=== PATIENT | male | born 1995 | race Caucasian/White ===

== ENCOUNTER 2017-06-04 18:01 | Emergency (ER) | payer BC ==
--- NOTE | 2017-06-04 18:23 | EDM.PDOC ---
ED HPI GENERAL MEDICAL PROBLEM - General Chief Complaint: Skin Complaint Stated Complaint: LEFT SIDE PINKIE INFECTION Time Seen by Provider: 06/04/17 18:17 Source of Information: Reports: Patient - History of Present Illness INITIAL COMMENTS - FREE TEXT/NARRATIVE: HISTORY AND PHYSICAL: [] 21-year-old male presents with a injury to his left fifth finger History of Present Illness: [] Smashed right fifth finger 3 weeks ago. Now has redness and swelling to this area Review of Systems: As per history of present illness and below otherwise all systems reviewed and negative. Past medical history: As per history of present illness and as reviewed below otherwise noncontributory. Surgical history: As per history of present illness and as reviewed below otherwise noncontributory. Social history: No reported history of drug or alcohol abuse. Family history: As per history of present illness and as reviewed below otherwise noncontributory. Physical exam: Alert and oriented gentleman speaking in full sentences denies significant pain with this injury HEENT: Atraumatic, normocehpalic, pupils reactive, negative for conjunctival pallor or scleral icterus, mucous membranes moist, throat clear, neck supple, nontender, trachea midline. Lungs: Clear to auscultation, breath sounds equal bilaterally, chest non tender. Heart: S1S2, regular, negative for clicks, rubs, or JVD. Abdomen: Soft, nondistended, nontender. Negative for masses or hepatossplenmegaly. Negative for costovertebral tenderness. Pelvis: Stable nontender. Genitourinary: Deferred. Rectal: Deferred Extremities: Erythema to the tip of his left fifth finger, negative for cords or calf pain. Neurovascular unremarkable. Neuro: Awake, alert, oriented. Cranial nerves II through XII unremarkable. Cerebellum unremarkable. Motor and sensory unremarkable throughout. Exam nonfocal. Diagnostics: [] Therapeutics: [] Impression: [Perionychia left first finger] Plan: []Home Augmentin Epson salt water soaks Definitive disposition and diagnosis as appropriate pending reevaluation and review of above. Onset: Sudden Duration: Week(s): (3 weeks ago) Location: Reports: Upper Extremity, Left Left 5-Little finger Pain Score (Numeric/FACES): 5 - Related Data Allergies Allergy/AdvReac Type Severity Reaction Status Date / Time No Known Allergies Allergy Verified 08/09/17 18:12 Home Meds: Home Meds Amoxicillin/Potassium Clav [Augmentin 875-125 Tablet] 1 each PO Q12HR #20 tablet 06/04/17 [Rx] ED ROS GENERAL - Review of Systems Review Of Systems: ROS reveals no pertinent complaints other than HPI. ED EXAM, SKIN/RASH Exam: See Below (See dictation) Course - Vital Signs Last Recorded V/S: Last Vital Signs Temp 36.5 C 06/04/17 18:12 Pulse 74 06/04/17 18:12 Resp 18 06/04/17 18:12 BP 141/74 H 06/04/17 18:12 Pulse Ox 98 06/04/17 18:12 Departure - Departure Time of Disposition: 18:23 Disposition: Home, Self-Care 01 Condition: Good Clinical Impression: Perionychia of finger Qualifiers: Laterality: left Qualified Code(s): L03.012 - Cellulitis of left finger - Discharge Information Prescriptions: Amoxicillin/Potassium Clav [Augmentin 875-125 Tablet] 1 each PO Q12HR #20 tablet Forms: ED Department Discharge Additional Instructions: The following information is given to patients seen in the emergency department who are being discharged to home. This information is to outline your options for follow-up care. We provide all patients seen in our emergency department with a follow-up referral. The need for follow-up, as well as the timing and circumstances, are variable depending upon the specifics of your emergency department visit. If you don't have a primary care physician on staff, we will provide you with a referral. We always advise you to contact your personal physician following an emergency department visit to inform them of the circumstance of the visit and for follow-up with them and/or the need for any referrals to a consulting specialist. The emergency department will also refer you to a specialist when appropriate. This referral assures that you have the opportunity for followup care with a specialist. All of these measure are taken in an effort to provide you with optimal care, which includes your followup. Under all circumstances we always encourage you to contact your private physician who remains a resource for coordinating your care. When calling for followup care, please make the office aware that this follow-up is from your recent emergency room visit. If for any reason you are refused follow-up, please contact the [facility] emergency department at and asked to speak to the emergency department charge nurse. Epson salt water soaks 3 times a day Augmentin tablets twice daily 10 days Follow-up with your primary care provider
[2017-06-04 18:28] VITALS: BP 141/74
== END 2017-06-04 18:38 | disposition home or self-care (01) ==
LOC: MW.ED 18:01
DX: L03.012 Cellulitis of left finger (principal)
CPT/HCPCS: 99282; 99284

== ENCOUNTER 2017-07-23 00:43 | Emergency (ER) | payer BC ==
[2017-07-23] MEDS ORDERED: Lidocaine 1% 20 ML MDV ONE (01:02)
[2017-07-23] MEDS ORDERED: Bacitracin Oint 1 GM U/D Packet ONE (01:06)
[2017-07-23 07:23] VITALS: BP 129/68
== END 2017-07-23 07:21 | disposition home or self-care (01) ==
LOC: MW.ED 00:43
DX: S01.412A Laceration without foreign body of left cheek and temporomandibular area, initial encounter (principal); W19.XXXA Unspecified fall, initial encounter; Y93.72 Activity, wrestling; Y92.009 Unspecified place in unspecified non-institutional (private) residence as the place of occurrence of the external cause
CPT/HCPCS: 12013; 99282; 99283

== ENCOUNTER 2019-01-15 22:40 | Emergency (ER) | payer BC ==
--- NOTE | 2019-01-15 22:47 | EDM.PDOC ---
ED HPI GENERAL MEDICAL PROBLEM - General Stated Complaint: SORE THROAT Time Seen by Provider: 01/15/19 22:46 Source of Information: Reports: Patient - History of Present Illness INITIAL COMMENTS - FREE TEXT/NARRATIVE: HISTORY AND PHYSICAL: History of present illness: [A shunt sore throat for 2 days increasing in severity some difficulty with solid food no difficulty with liquid no drooling trismus or muffled voice ] Review of systems: As per history of present illness and below otherwise all systems reviewed and negative. Past medical history: As per history of present illness and as reviewed below otherwise noncontributory. Surgical history: As per history of present illness and as reviewed below otherwise noncontributory. Social history: No reported history of drug or alcohol abuse. Family history: As per history of present illness and as reviewed below otherwise noncontributory. Physical exam: HEENT: Atraumatic, normocephalic, pupils reactive, negative for conjunctival pallor or scleral icterus, mucous membranes moist, throat clear, neck supple, nontender, trachea midline. D erythema no exudates Lungs: Clear to auscultation, breath sounds equal bilaterally, chest nontender. Heart: S1S2, regular, negative for clicks, rubs, or JVD. Abdomen: Soft, nondistended, nontender. Negative for masses or hepatosplenomegaly. Negative for costovertebral tenderness. Pelvis: Stable nontender. Genitourinary: Deferred. Rectal: Deferred. Extremities: Atraumatic, negative for cords or calf pain. Neurovascular unremarkable. Neuro: Awake, alert, oriented. Cranial nerves II through XII unremarkable. Cerebellum unremarkable. Motor and sensory unremarkable throughout. Exam nonfocal. Diagnostics: [/Influenza ] Therapeutics: [Augmentin 875 per 125 #20 no refill ] Impression: [ pharyngitis ] Definitive disposition and diagnosis as appropriate pending reevaluation and review of above. throat Pain Score (Numeric/FACES): 8 - Related Data Allergies Allergy/AdvReac Type Severity Reaction Status Date / Time No Known Allergies Allergy Verified 01/15/19 22:49 Home Meds: Home Meds . [No Known Home Meds] 07/23/17 [History] Past Medical History Musculoskeletal History: Reports: Fracture Social & Family History - Caffeine Use Caffeine Use: Reports: Coffee, Energy Drinks, Soda ED ROS GENERAL - Review of Systems Review Of Systems: See Below ED EXAM, GENERAL - Physical Exam Exam: See Below Course - Vital Signs Last Recorded V/S: Last Vital Signs Temp 96.4 F 01/15/19 22:46 Pulse 68 01/15/19 22:46 Resp 17 01/15/19 22:46 BP 126/72 01/15/19 22:46 Pulse Ox 97 01/15/19 22:46 - Orders/Labs/Meds Orders: Active Orders 24 hr Category Date Time Status CULTURE STREP A CONFIRMATION [RM] Stat Lab 01/15/19 22:52 Results STREP SCRN A RAPID W CULT CONF [RM] Stat Lab 01/15/19 22:52 Results Departure - Departure Time of Disposition: 23:24 Disposition: Home, Self-Care 01 Condition: Good Clinical Impression: Pharyngitis - Discharge Information Additional Instructions: The following information is given to patients seen in the emergency department who are being discharged to home. This information is to outline your options for follow-up care. We provide all patients seen in our emergency department with a follow-up referral. The need for follow-up, as well as the timing and circumstances, are variable depending upon the specifics of your emergency department visit. If you don't have a primary care physician on staff, we will provide you with a referral. We always advise you to contact your personal physician following an emergency department visit to inform them of the circumstance of the visit and for follow-up with them and/or the need for any referrals to a consulting specialist. The emergency department will also refer you to a specialist when appropriate. This referral assures that you have the opportunity for follow-up care with a specialist. All of these measure are taken in an effort to provide you with optimal care, which includes your follow-up. Under all circumstances we always encourage you to contact your private physician who remains a resource for coordinating your care. When calling for follow-up care, please make the office aware that this follow-up is from your recent emergency room visit. If for any reason you are refused follow-up, please contact the [facility] emergency department at and asked to speak to the emergency department charge nurse. - My Orders Last 24 Hours: My Active Orders 01/15/19 22:52 CULTURE STREP A CONFIRMATION [RM] Stat STREP SCRN A RAPID W CULT CONF [RM] Stat - Assessment/Plan Last 24 Hours: My Active Orders 01/15/19 22:52 CULTURE STREP A CONFIRMATION [RM] Stat STREP SCRN A RAPID W CULT CONF [RM] Stat
[2019-01-15 23:48] VITALS: BP 113/60
== END 2019-01-15 23:35 | disposition home or self-care (01) ==
LOC: MW.ED 22:40
DX: J02.9 Acute pharyngitis, unspecified (principal)
CPT/HCPCS: 87081; 87804; 87880-QW; 99282; 99283

== ENCOUNTER 2025-03-03 19:56 | Emergency (ER) | payer BC ==
[2025-03-03] MEDS: Lidocaine 1% 5 ML VIAL INJECT ONE (21:19)
[2025-03-03] MEDS: Diphtheria,Pertussis(Acell),Tetanus Vaccine 0.5 ML Syringe IM ONE (21:19)
[2025-03-03 21:25] VITALS: BP 104/69; PULSE 67
== END 2025-03-03 21:27 | disposition home or self-care (01) ==
LOC: MW.ED 19:56
DX: S51.812A Laceration without foreign body of left forearm, initial encounter (principal); Z23 Encounter for immunization; Z79.899 Other long term (current) drug therapy; W25.XXXA Contact with sharp glass, initial encounter
CPT/HCPCS: 12001; 90471; 90715; 99282; J2003; 12041; 99283